=== PATIENT | male | born 1985 ===

== ENCOUNTER 2018-04-08 18:16 | Outpatient (CLI) | payer OTHER | END 2018-04-08 19:23 | disposition home or self-care (01) | LOC: LAB 18:16 | DX: E03.8 Other specified hypothyroidism (principal); E66.3 Overweight; R73.03 Prediabetes; Z11.4 Encounter for screening for human immunodeficiency virus [HIV]; Z11.3 Encounter for screening for infections with a predominantly sexual mode of transmission; Z20.5 Contact with and (suspected) exposure to viral hepatitis; Z20.1 Contact with and (suspected) exposure to tuberculosis ==

== ENCOUNTER 2019-02-23 10:06 | Outpatient (CLI) | payer OTHER | END 2019-02-23 10:50 | disposition home or self-care (01) | LOC: LAB 10:06 | DX: D50.0 Iron deficiency anemia secondary to blood loss (chronic) (principal); D68.8 Other specified coagulation defects; E55.9 Vitamin D deficiency, unspecified; N18.1 Chronic kidney disease, stage 1; E03.8 Other specified hypothyroidism; N39.0 Urinary tract infection, site not specified; E78.5 Hyperlipidemia, unspecified; E11.65 Type 2 diabetes mellitus with hyperglycemia; Z20.6 Contact with and (suspected) exposure to human immunodeficiency virus [HIV]; Z20.5 Contact with and (suspected) exposure to viral hepatitis; Z20.2 Contact with and (suspected) exposure to infections with a predominantly sexual mode of transmission; I10 Essential (primary) hypertension; Z20.1 Contact with and (suspected) exposure to tuberculosis ==

== ENCOUNTER 2021-08-08 08:26 | Outpatient (CLI) | payer OTHER | END 2021-08-08 08:45 | disposition home or self-care (01) | LOC: PPH VACUNA 08:26 | PROVIDERS: ATTEND Emergency Medicine Pediatric Emergency Medicine | DX: Z23 Encounter for immunization (principal) ==